=== PATIENT | male | born 1950 | race Caucasian/White ===

== ENCOUNTER 2022-12-02 07:20 | Day surgery (SDC) | payer MEDICARE | END 2022-12-02 09:34 | disposition home or self-care (01) | LOC: ORSCSDS 07:20 | PROC: 0DBH8ZX Excision of Cecum, Via Natural or Artificial Opening Endoscopic, Diagnostic (ICD-10-PCS; principal; 2022-12-02) | PROC: 0DBM8ZX Excision of Descending Colon, Via Natural or Artificial Opening Endoscopic, Diagnostic (ICD-10-PCS; principal; 2022-12-02) | PROC: 0DBN8ZX Excision of Sigmoid Colon, Via Natural or Artificial Opening Endoscopic, Diagnostic (ICD-10-PCS; principal; 2022-12-02) | PROC: 0DBL8ZX Excision of Transverse Colon, Via Natural or Artificial Opening Endoscopic, Diagnostic (ICD-10-PCS; principal; 2022-12-02) | PROC: 0DBP8ZX Excision of Rectum, Via Natural or Artificial Opening Endoscopic, Diagnostic (ICD-10-PCS; principal; 2022-12-02) | DX: Z12.11 Encounter for screening for malignant neoplasm of colon (principal); Z86.010 Personal history of colon polyps; D12.0 Benign neoplasm of cecum; D12.3 Benign neoplasm of transverse colon; D12.4 Benign neoplasm of descending colon; D12.5 Benign neoplasm of sigmoid colon; K62.1 Rectal polyp; K64.4 Residual hemorrhoidal skin tags; E78.5 Hyperlipidemia, unspecified; F17.210 Nicotine dependence, cigarettes, uncomplicated; Z79.82 Long term (current) use of aspirin; Z79.899 Other long term (current) drug therapy ==

== ENCOUNTER → 2025-04-03 | Outpatient (CLI) | payer MEDICARE ==
[~2025-04-03] MED LIST: ASPI81CH PO; ATOR10 PO; FISH OIL 1,2001 EAC7 PO
== END ==
LOC: LAB SHORT 12:53 → LAB 12:53
DX: D48.5 Neoplasm of uncertain behavior of skin (principal)
CPT/HCPCS: 88305